=== PATIENT | male | born 1980 | race Caucasian/White ===

== ENCOUNTER 2025-03-01 17:33 | Emergency (ER) | payer OTHER, SELFPAY ==
[2025-03-01 17:41] VITALS: BP 137/82
[2025-03-01 17:57] LABS: Hematocrit 45.6 % (39.0-52.0); Hemoglobin 15.8 g/dL (13.0-18.0); Mean Corp Hgb Conc. 34.6 g/dL (33.0-37.0); Mean Corpuscular Volume 85.2 fL (80.0-94.0); Nucleated Red Blood Cells % 0 % (-); Platelet Count 278 10^3/uL (130-400); Red Cell Dist. Width 13.7 % (11.5-14.5)
[2025-03-01 18:16] LABS: ALT (SGPT) 44 U/L (0-50); AST (SGOT) 26 U/L (17-59); Albumin 4.7 g/dl (3.5-5.0); Alkaline Phosphatase 63 U/L (38-126); Blood Urea Nitrogen 17 mg/dl (9-20); Calcium 9.1 mg/dl (8.4-10.2); Carbon Dioxide 27 mmol/L (22-30); Chloride 106 mmol/L (98-107); Glucose 100 mg/dl (70-99); Potassium 4.1 mmol/L (3.5-5.1); Sodium 140 mmol/L (135-145); Total Protein 7.7 g/dl (6.3-8.2); eGFR > 60.00
[2025-03-01 18:18] LABS: Troponin I < 0.012 ng/ml
[2025-03-01 21:31] VITALS: BP 138/85
--- NOTE | 2025-03-01 21:36 | ED.GENMED ---
History of Present Illness
General
Chief Complaint: Chest Pain
Time Seen by Provider: 03/01/25 21:35
History of Present Illness
History of Present Illness:
44-year-old male presenting with left-sided chest pressure radiating up into his neck with associated shortness of breath for the past 2 to 3 days. Patient states that he feels better after drinking water, feels like he is 'able to get more air in
afterwards'. Patient states that chest pressure is nonexertional nonpleuritic, not associated with diaphoresis. Patient denies any exacerbating factors. Patient reports minimal nonproductive cough. Patient denies fever, chills, leg swelling,
abdominal pain, nausea or vomiting. Patient reports intermittent smoking cigarettes. Otherwise no recent long travel/prolonged immobilization/surgeries, no history of DVT/PE
Phy Exam
Physical Exam
Physical Exam:
General: Alert, no acute distress
Head: NCAT
Eyes: clear conjunctiva
Neck: supple
Cardiac: regular rate and rhythm, no murmur. Equal palpable radial pulses bilaterally
Lungs: clear to auscultation bilaterally. No wheezes, rales, or rhonchi. Speaking full unlabored sentences. No respiratory distress.
Abdomen: soft, nondistended nontender. No rebound or guarding.
MSK: no lower extremity edema bilaterally. No deformity
Skin: warm, dry. not diaphoretic
Neuro: Alert and oriented x3. no focal deficits
Scores
Heart Score for Chest Pain Patients
STEMI patient?: No
History: Slightly or Non-Suspicious
ECG: Normal
Age: </= 45 years
Risk Factors: 1 or 2 Risk Factors
Troponin: </= Normal Limit
Heart Score for Chest Pain Patients: 1
Heart Score Risk: 2.5% MACE over next 6 weeks
Course
Orders/Labs/Results
Orders:
Orders
03/01/25 17:36
EKG [Electrocardiogram (*1)] Urgent
Reason for Study: Chest Pain
EKG- Treatment ONCE
03/01/25 17:48
Complete Blood Count/With Diff Urgent
Comprehensive Metabolic Panel Urgent
Troponin I Urgent
03/01/25 22:06
Electrocardiogram (*1) Urgent
Reason for Study: Chest Pain
EKG- Treatment ONCE
CXR2 [CR Chest - 2 Views ] Urgent
Comment:
Reason For Exam: chest pain
03/01/25 22:36
Troponin I Urgent
Abnormal Lab Results
03/01/25
17:48
Neutrophils % 38.4 L %
(42.2-75.2)
Monocytes % 10.7 H %
(1.7-9.3)
Eosinophils % 6.1 H %
(0-6)
Glucose 100 H mg/dl
(70-99)
03/01/25 17:48
03/01/25 17:48
Vital Signs
Initial and Last Documented VS:
Initial Vital Signs
Temp Pulse Resp BP Pulse Ox
98.2 F 60 16 137/82 97
03/01/25 17:41 03/01/25 17:41 03/01/25 17:41 03/01/25 17:41 03/01/25 17:41
Last Documented Vital Signs
Temp Pulse Resp BP Pulse Ox
98.2 F 47 15 122/76 98
03/01/25 17:41 03/01/25 23:00 03/01/25 23:00 03/01/25 23:00 03/01/25 22:00
MDM/Problems Addressed
Differential Diagnosis Includes:
NSTEMI, GERD, pneumothorax, angina
MDM/Problems Addressed:
44-year-old male history of smoking presenting with left-sided chest pressure radiating to his throat with associated shortness of breath for the past 2 to 3 days. Patient states that symptoms get better with drinking water. Heart score 1.
Troponin within normal limits. CBC/CMP otherwise within normal limits. Will obtain chest x-ray rule out pneumothorax, repeat troponin.
Repeat EKG shows sinus bradycardia 50 bpm with IN 146 QTc 421 no acute ischemic changes
Chest x-ray shows no acute consolidation or focal infiltrate, no pneumothorax.
Repeat troponin wnl.
Discussed results with pt at bedside. Vitals stable. Stable for discharge with cardiology follow up
*Pulse Oximetry
SaO2: 97
Oxygen Mode of Delivery: Room air
Patient hypoxic: no
*EKG
Interpreted by ED Provider?: Yes (EKG shows sinus rhythm at 57 bpm with IN 146 QTc 422 no acute ischemic changes)
*Critical Care Note
Total Time (30-74mins, 75-104mins- exclusive of procedures): Not Applicable
ED Attending Note
-
Portions of this chart may have been created with voice recognition software.� Occasional wrong word or��sound alike� substitutions may have occurred due to the inherent limitations of voice recognition software.
Discharge Plan
Departure
Patient Disposition: Home (Routine Discharge)
Date of Disposition: 03/01/25
Time of Disposition: 23:43
Patient with high blood pressure during this ER visit?: Yes
Discharge Problem:
Chest pain
Instructions: Chest Pain CBC Follow Up, BLOOD PRESSURE
Prescriptions:
No Action
No Current Medications
0
Referrals:
UNKNOWN - PT DOES,NOT KNOW [Family Provider]
Luke Lee MD [Active, Cardiology]
Activity Restrictions/Additional Instructions:
Follow-up with cardiology next week
Return to the emergency department for sweaty with chest pain, chest pain with exertion or new/worsening symptoms
Interventions
Interventions:
*Risk Screen - Suicide Last Done: 03/01/25 17:41
*General Assessment Last Done: 03/01/25 17:41
*Neglect/Abuse Screening Last Done: 03/01/25 22:31
*ED- Fall Risk Assessment Last Done: 03/01/25 22:31
*Nursing Disposition Last Done: 03/01/25 23:57
ED- Cardiac Assessment Last Done: 03/01/25 22:40
Discharge Date and Time
Discharge Date/Time: 03/01/25 23:57
Print Language: P[place]
[2025-03-01 22:00] VITALS: BP 137/81
[2025-03-01 22:31] VITALS: BMI 37.1
[2025-03-01 23:00] VITALS: BP 122/76
[2025-03-01 23:12] LABS: Troponin I < 0.012 ng/ml
== END 2025-03-01 23:57 | disposition home or self-care (01) ==
LOC: EMR 17:33
PROVIDERS: Student in an Organized Health Care Education/Training Program; EMERGENCY PHYSICIAN Emergency Medicine
DX: R07.9 Chest pain, unspecified (principal); R03.0 Elevated blood-pressure reading, without diagnosis of hypertension; F17.210 Nicotine dependence, cigarettes, uncomplicated
CPT/HCPCS: 99284; 71046; 80053; 84484; 85025; 93005

== ENCOUNTER 2025-06-28 21:15 | Emergency (ER) | payer OTHER, SELFPAY ==
[2025-06-28 21:20] VITALS: BP 154/89
[2025-06-28 21:48] LABS: Hematocrit 43.8 % (39.0-52.0); Hemoglobin 15.0 g/dL (13.0-18.0); Mean Corp Hgb Conc. 34.2 g/dL (33.0-37.0); Mean Corpuscular Volume 84.2 fL (80.0-94.0); Nucleated Red Blood Cells % 0 % (-); Platelet Count 287 10^3/uL (130-400); Red Cell Dist. Width 12.8 % (11.5-14.5)
[2025-06-28 22:03] LABS: ALT (SGPT) 29 U/L (0-50); AST (SGOT) 22 U/L (17-59); Albumin 4.6 g/dl (3.5-5.0); Alkaline Phosphatase 74 U/L (38-126); Blood Urea Nitrogen 19 mg/dl (9-20); Calcium 9.1 mg/dl (8.4-10.2); Carbon Dioxide 29 mmol/L (22-30); Chloride 105 mmol/L (98-107); Glucose 109 mg/dl (70-99); Potassium 4.2 mmol/L (3.5-5.1); Sodium 138 mmol/L (135-145); Total Protein 7.5 g/dl (6.3-8.2); eGFR > 60.00
[2025-06-28 22:16] LABS: Troponin I 0.013 ng/ml
[2025-06-28 23:14] VITALS: BMI 37.3
[2025-06-28 23:17] VITALS: BP 142/78
[2025-06-28 23:41] LABS: Lipase 47 U/L (23-300)
[2025-06-28] MEDS: TORADOL 15 MG IV (23:59)
[2025-06-29] VITALS: BP 137/76
[2025-06-29 01:08] LABS: D-Dimer < 0.27 ug/mlFEU (0.00-0.50)
[2025-06-29 01:16] VITALS: BP 133/83
[2025-06-29 02:00] VITALS: BP 130/89
[2025-06-29 02:46] VITALS: BP 144/79
[2025-06-29 02:50] LABS: Troponin I < 0.012 ng/ml
[2025-06-29 03:00] VITALS: BP 134/83
--- NOTE | 2025-06-29 03:00 | ED.GENMED ---
History of Present Illness
<Raudel Ryder MD - Last Filed: 06/29/25 19:48>
General
Chief Complaint: Chest Pain
Source: patient and spouse
Exam Limitations: none
Time Seen by Provider: 06/28/25 23:10
Nursing documentation reviewed up to this point in time: agreed with
History of Present Illness
History of Present Illness:
Patient without any significant past medical history, presents ED secondary to intermittent chest pain over the past 3 days. Chest pain described as throbbing, with radiation to the back, without any alleviating or exacerbating factors. Patient
was evaluated in the ED earlier this year for similar chest pain. He was referred to cardiology for consultation, but appointment needed to be rescheduled due to schedule conflict. He does have an appointment next month.
Review of Systems
<Raudel Ryder MD - Last Filed: 06/29/25 19:48>
Review of Systems
Allergies reviewed?: Yes
All Other Systems: ROS reviewed and negative except as documented in HPI and ROS
Constitutional: Reports no symptoms
Respiratory: Reports no symptoms
Cardiac: Reports chest pain
ABD/GI: Reports no symptoms
Skin: Reports no symptoms
Neurological: Reports no symptoms
Phy Exam
<Raudel Ryder MD - Last Filed: 06/29/25 19:48>
Physical Exam
Physical Exam:
General: well nourished male, in no acute distress. afebrile
Heent: nc/at. eomi
Lungs : cta
Heart: rrr. no murmur. chest wall nontender to palpation
Abd: soft and nontender
Neuro: aao x 3. no focal neurological deficit
Skin: warm to touch. no rash
Psych: pleasant and cooperative
Scores
<Raudel Ryder MD - Last Filed: 06/29/25 19:48>
Heart Score for Chest Pain Patients
STEMI patient?: No
History: Slightly or Non-Suspicious
ECG: Normal
Age: >45 - <65 years
Risk Factors: 1 or 2 Risk Factors
Troponin: </= Normal Limit
Heart Score for Chest Pain Patients: 2
Heart Score Risk: 2.5% MACE over next 6 weeks
Course
<Raudel Ryder MD - Last Filed: 06/29/25 19:48>
Orders/Labs/Results
Orders:
Orders
06/28/25 21:16
EKG [Electrocardiogram (*1)] Urgent
Reason for Study: Chest Pain
EKG- Treatment ONCE
06/28/25 21:38
Complete Blood Count/With Diff Urgent
Comprehensive Metabolic Panel Urgent
Lipase Urgent
Comment: ADD ON
Troponin I Urgent
06/28/25 23:11
Add On- LAB Urgent
Tests Added?: lipase
06/28/25 23:55
Ketorolac [Toradol] 15 mg IV NOW STA
06/28/25 23:56
D-Dimer Urgent
06/29/25 00:01
CR Chest - 2 Views Urgent
Comment:
Reason For Exam: chest pain
06/29/25 02:10
Electrocardiogram (*1) Urgent
Reason for Study: Chest Pain
EKG- Treatment ONCE
06/29/25 02:12
CT Chest Angio W/wo Iv Contras Urgent
Comment:
Reason For Exam: chest pain
06/29/25 02:16
Troponin I Urgent
Abnormal Lab Results
06/28/25
21:38
Absolute Monos (auto) 0.8 H 10^3/uL
(0.1-0.6)
Neutrophils % 38.9 L %
(42.2-75.2)
Monocytes % 10.3 H %
(1.7-9.3)
Glucose 109 H mg/dl
(70-99)
06/28/25 21:38
06/28/25 21:38
Vital Signs
Initial and Last Documented VS:
Initial Vital Signs
Temp Pulse Resp BP Pulse Ox
98.0 F 65 18 154/89 98
06/28/25 21:20 06/28/25 21:20 06/28/25 21:20 06/28/25 21:20 06/28/25 21:20
Last Documented Vital Signs
Temp Pulse Resp BP Pulse Ox
98.0 F 51 14 144/93 95
06/28/25 21:20 06/29/25 04:30 06/29/25 04:30 06/29/25 04:00 06/29/25 04:30
<Deidra Rodriguez, DO - Last Filed: 06/29/25 04:12>
Orders/Labs/Results
Orders:
Orders
06/28/25 21:16
EKG [Electrocardiogram (*1)] Urgent
Reason for Study: Chest Pain
EKG- Treatment ONCE
06/28/25 21:38
Complete Blood Count/With Diff Urgent
Comprehensive Metabolic Panel Urgent
Lipase Urgent
Comment: ADD ON
Troponin I Urgent
06/28/25 23:11
Add On- LAB Urgent
Tests Added?: lipase
06/28/25 23:55
Ketorolac [Toradol] 15 mg IV NOW STA
06/28/25 23:56
D-Dimer Urgent
06/29/25 00:01
CR Chest - 2 Views Urgent
Comment:
Reason For Exam: chest pain
06/29/25 02:10
Electrocardiogram (*1) Urgent
Reason for Study: Chest Pain
EKG- Treatment ONCE
06/29/25 02:12
CT Chest Angio W/wo Iv Contras Urgent
Comment:
Reason For Exam: chest pain
06/29/25 02:16
Troponin I Urgent
Abnormal Lab Results
06/28/25
21:38
Absolute Monos (auto) 0.8 H 10^3/uL
(0.1-0.6)
Neutrophils % 38.9 L %
(42.2-75.2)
Monocytes % 10.3 H %
(1.7-9.3)
Glucose 109 H mg/dl
(70-99)
06/28/25 21:38
06/28/25 21:38
Vital Signs
Initial and Last Documented VS:
Initial Vital Signs
Temp Pulse Resp BP Pulse Ox
98.0 F 65 18 154/89 98
06/28/25 21:20 06/28/25 21:20 06/28/25 21:20 06/28/25 21:20 06/28/25 21:20
Last Documented Vital Signs
Temp Pulse Resp BP Pulse Ox
98.0 F 51 14 144/93 95
06/28/25 21:20 06/29/25 04:30 06/29/25 04:30 06/29/25 04:00 06/29/25 04:30
<Raudel Ryder MD - Last Filed: 06/29/25 19:48>
MDM/Problems Addressed
MDM/Problems Addressed:
Pt with an unremarkable work up in ED. Pt otherwise remains afebrile, hemodynamically stable and resting comfortably during observation. If CTA chest is normal, patient will be discharged home and referred to cardiology for outpatient evaluation. Pt
expresses understanding at time of discharge
<Raudel Ryder MD - Last Filed: 06/29/25 19:48>
*Pulse Oximetry
SaO2: 97
Oxygen Mode of Delivery: Room air
Patient hypoxic: no
*Critical Care Note
Total Time (30-74mins, 75-104mins- exclusive of procedures): Not Applicable
<Deidra Rodriguez DO - Last Filed: 06/29/25 04:12>
*Radiology
Radiology exam reviewed: radiology read reviewed (CTA of the chest shows no PE, no aortic dissection or aneurysm. Mild cardiomegaly. Lungs are clear aside from dependent atelectasis. No pneumothorax or pleural effusion.)
ED Attending Note
<Raudel Rdyer MD - Last Filed: 06/29/25 19:48>
-
Portions of this chart may have been created with voice recognition software.� Occasional wrong word or��sound alike� substitutions may have occurred due to the inherent limitations of voice recognition software.
Discharge Plan
Departure
Patient Disposition: Home (Routine Discharge)
Date of Disposition: 06/29/25
Time of Disposition: 04:12
Patient with high blood pressure during this ER visit?: No
Condition: Good
Discharge Problem:
Chest pain
Instructions: Chest Pain CBC Follow Up
Prescriptions:
No Action
No Current Medications
0
Referrals:
CONRAD SERRANO [Other]
Luke Lee MD [Active, Cardiology]
Activity Restrictions/Additional Instructions:
As discussed, please follow-up with your primary care surgeon and/or referred steel detailer for further evaluation and treatment. Please consider return to ED with worsening symptoms.
Interventions
Interventions:
*Risk Screen - Suicide Last Done: 06/28/25 21:20
*General Assessment Last Done: 06/28/25 21:20
*Neglect/Abuse Screening Last Done: 06/28/25 21:20
*ED COVID-19 Vaccine History Last Done: 06/28/25 23:20
*ED Influenza Vaccine History Last Done: 06/28/25 23:20
[facility] Fall Risk Assessment Tool Last Done: 06/28/25 23:20
*Nursing Disposition Last Done: 06/29/25 05:10
ED- Cardiac Assessment Last Done: 06/28/25 23:20
Discharge Date and Time
Discharge Date/Time: 06/29/25 05:10
Print Language: [place]
[2025-06-29 04:00] VITALS: BP 144/93
== END 2025-06-29 05:10 | disposition home or self-care (01) ==
LOC: EMR 21:15
PROVIDERS: EMERGENCY PHYSICIAN Emergency Medicine
DX: R07.89 Other chest pain (principal)
CPT/HCPCS: 99284; 96374; 71046; 71275; 80053; 83690; 84484; 85025; 85379; 93005; Q9967